=== PATIENT | male | born 1945 | race Caucasian/White ===

== ENCOUNTER → 2021-02-07 14:42 | Outpatient (CLI) | payer MEDICARE, SELFPAY ==
[2021-02-07 19:23] LABS: COVID19 -Nasal RAPID Negative (Negative)
== END ==
PROVIDERS: PCP Family Medicine; Referring Provider Urology; Visit Provider Urology
DX: R30.0 Dysuria (principal); Z20.822 Contact with and (suspected) exposure to COVID-19; N18.9 Chronic kidney disease, unspecified; N28.89 Other specified disorders of kidney and ureter; J44.9 Chronic obstructive pulmonary disease, unspecified; F17.209 Nicotine dependence, unspecified, with unspecified nicotine-induced disorders
CPT/HCPCS: 81002; 87635; 99215

== ENCOUNTER 2021-02-10 06:33 | Day surgery (SDC) | payer MEDICARE, SELFPAY ==
[2021-02-02 12:12] VITALS: BMI 15.5
[2021-02-10] VITALS (9 sets, daily range): BP systolic 175–221; BP diastolic 80–110; PULSE 42–667; RESP 10–20; TEMP 36.3–36.7; O2SAT 97–100; BMI 15.5
[2021-02-10] MEDS: LACTATED RINGERS 1,000 ML 42 ML IV (07:01)
--- NOTE | 2021-02-10 07:41 | SUR.OPER ---
Lithotomy on padded OR bed, head on pillow, arms secured on padded arm boards at <90 degrees abduction. Legs secured in padded yellow fins stirrups.
[2021-02-10] MEDS: ALBUTEROL 2.5 MG/3 ML NEB (ADULT) INH (07:45)
--- NOTE | 2021-02-10 07:48 | PM.PREOP ---
Pre-operative Note COVID-19 COVID-19 status: Negative Result date/Date tested (Pos, Neg/Pending): 02/07/21 Interval Note History & Physical reviewed/Exam performed by Physician: Yes Changes to H&P: No
[2021-02-10] MEDS: CIPROFLOXACIN 400 MG/200 ML PIGGYBACK 200 MG IV (07:56)
[2021-02-10] MEDS: CEFAZOLIN 2 GM/20 ML SYRINGE IV (08:05)
[2021-02-10] MEDS: IOPAMIDOL 15 ML VIAL INJ (08:21)
--- NOTE | 2021-02-10 08:59 | PM.OP.1 ---
Procedure & Clinicians Procedure: Cystoscopy with right retrograde pyelogram, right ureteroscopy with right renal pelvic washing. Same procedure as scheduled: Yes Indications: Is a very pleasant 75-year-old male who is a long-time smoker who was found to have what was reported as a right renal mass on imaging. He presents this time for right ureteroscopy possible biopsy, retrograde pyelogram, cystoscopy. Surgeon: Wilian Li Click Yes if Unassisted: Yes Anesthesia Type: General Operative Notes Findings: Urethral meatus is normal. Urethra is normal along its length with normal mucosa. The prostate shows moderate obstructive character. The ureteral orifices are in normal position with clear efflux. In the floor of the bladder there were few small flecks of calcification. The bladder mucosa is normal without sign of tumor. No other abnormalities are noted within the bladder. At retrograde pyelogram the ureter is somewhat torturous there is some dilation just above the vessels. But it was regular without filling defect. In the renal pelvis in the upper pole the upper pole calices were dilated and had smooth large filling defects. In the uppermost calyx there were 3 in number that appeared to be 1 to 1-1/2 cm in diameter. In the next calyx inferior there was a larger stone that appeared to be approximately 3 +cm and was rather ovoid her egg-shaped. At ureteroscopy these turned out to be calcifications which were rather purplish or liver in color. The larger stone had some crystalline surface material and was surrounded by mucus. A renal pelvic washing was obtained via the ureteral scope directly in this area. No papillary lesions were noted. And again the ureter was normal along its length under direct visualization. Closure Type: not applicable Specimen(s): other (Right renal pelvic washing for cytology.) Prosthetic devices, grafts, tissues, transplants, or devices: None Estimated Blood Loss (mL): 0 Blood products transfused: none Procedure in detail: After informed consent was obtained, the patient was identified and brought to the operating room. The patient was then placed in a supine position on the operative table and anesthesia was induced and maintained. The patient was then transitioned to the lithotomy position, prepped, draped, prepared under sterile fashion for transurethral procedure. Surgical pause was then held. After prepping, draping and ensuring an adequate level of anesthesia attempt was made to pass the cystoscope. The meatus was not accepting of the 22 Nepali scope and therefore Yu sounds were applied in the urethral meatus dilated to 26 Nepali. The cystoscope then easily passed through the urethra prostate and into the bladder. Cystoscopy was performed and findings noted. A cone-tipped catheter was then impacted in the right ureteral orifice and retrograde pyelogram performed collecting serial images via the fluoroscope. With these findings in hand a guidewire was passed up and into the collecting system and the scope was backed out leaving the wire in place as a safety wire. The cystoscope was then reinserted and a 2nd wire passed up and into the collecting system to be used as a working wire. The ureteral scope was then passed over the wire in a coaxial fashion up and into the collecting system. The collecting system was filled with contrast and sequential nephroscopy was then performed. The scope was then placed in the calyx with the largest of the stones and renal pelvic washing was performed using the path find your and a check flow valve on the scope. Again sequential nephroscopy was performed and no other new findings were noted. The scope was then backed out visualizing the ureter along its entire length. The cystoscope was reinserted and the safety wire was removed under direct vision. The bladder was then drained the cystoscope removed, the patient was awakened and taken to the postanesthesia care unit having tolerated the procedure well. The patient will be discharged home to follow up my office in the next 10-14 days. There were no complications Complications: none Post-operative Condition: stable Disposition: PACU Plan for aftercare: Patient to be discharged to home to follow-up in my office in the next 10-14 days.
--- NOTE | 2021-02-10 09:16 | DI.RAD.S_ITS ---
PROCEDURE: XR ABDOMEN 1V INDICATIONS: RETROGRADE TECHNIQUE: 5 fluoroscopic view of the abdomen acquired. COMPARISON: [facility], MR, MR ABDOMEN WITHOUT CONTRAST, 11/02/2020, 10:03. FINDINGS: Right retrograde pyelogram with ureteral cannulation. The right ureter appears to be within normal limits in caliber. The right renal collecting system is dilated. There are filling defects within the upper pole calices. IMPRESSION: Intraoperative guidance provided. Right retrograde pyelogram. Filling defects demonstrated in the upper pole calices. Right hydronephrosis. Dictated by: Chepe Irizarry M.D. on 02/10/2021 at 11:00 Approved by: Chepe Irizarry M.D. on 02/10/2021 at 11:05
--- NOTE | 2021-02-10 10:00 | SUR.PHASEI ---
Notiffied Dr Moraes about pt c/o severe pain last few days that was 10/10 pain and nausea in left lower quadrant surgeon Dr Moraes at bedside and assessed pt .Pt had hx of previous hernia repair in 70's and said pain in same spot has been bulging and painful for a few years but this week daily severe pain and bulging. Dr moraes consulted Dr Troy . Dr Reyes came to bedside and assessed pt and plan to schedule hernia repair in following week. RN will notify Dr Moraes of general surgery plan for surgery next week..
--- NOTE | 2021-02-10 10:04 | SUR.PHASEII ---
Assumed care of pt, stretcher low, locked call wheatley in hand.
--- NOTE | 2021-02-10 10:09 | SUR.PHASEII ---
Diana updated. Awaiting Dr. Li to let him know about Dr. Troy's assessment.
--- NOTE | 2021-02-10 11:38 | SUR.PHASEII ---
Spoke with Dr. Li, informed him of Dr. Troy's assessment of pt. Stated pt ok to go. Appointment made with dr troy's office for pt, aware. Pt up to bathroom, has c/o urgency frequency and bloody urine. Urine initially bloody now clear. Pt left when ready in stable condition.
--- NOTE | 2021-02-10 11:51 | SUR.PHASEI ---
Addendum: fluids encouraged, pt very resistent. When discussing the d/c instructions with she stated that pt is very resistant to drinking and she would try to make sure he does drink extra fluids.
== END 2021-02-10 11:30 | disposition home or self-care (01) ==
PROVIDERS: PCP Family Medicine; Referring Provider Urology; Visit Provider Urology
PROC: (CPT 52005; principal; 2021-02-10 07:45)
DX: N28.89 Other specified disorders of kidney and ureter (principal); F17.210 Nicotine dependence, cigarettes, uncomplicated; J44.9 Chronic obstructive pulmonary disease, unspecified; I10 Essential (primary) hypertension; Z86.73 Personal history of transient ischemic attack (TIA), and cerebral infarction without residual deficits; N40.0 Benign prostatic hyperplasia without lower urinary tract symptoms
CPT/HCPCS: 52005; 74018; 76000; J0690; J0744; J1100; J2405; J2704; J3010; J7613

== ENCOUNTER → 2021-02-11 16:11 | Outpatient (CLI) | payer MEDICARE, SELFPAY | PROVIDERS: PCP Family Medicine; Referring Provider Internal Medicine; Visit Provider Internal Medicine | DX: R30.0 Dysuria (principal) | CPT/HCPCS: 87086 ==

== ENCOUNTER → 2021-02-22 10:49 | Outpatient (CLI) | payer MEDICARE, SELFPAY ==
--- NOTE | 2021-02-22 10:51 | DI.RAD.S_ITS ---
PROCEDURE: XR KUB INDICATIONS: Right renal calculi TECHNIQUE: One view of the abdomen acquired. COMPARISON: [facility], CT, KUB - CT (PNL), 10/13/2013, 9:14. [facility], CR, XR ABDOMEN 1V, 02/10/2021, 9:25. [facility], MR, MR ABDOMEN WITHOUT CONTRAST, 11/02/2020, 10:03. FINDINGS: Surgical changes and devices: None. Bowel: Bowel gas pattern is normal. Soft tissues: No suspicious abdominal calcifications. Visualized solid organ contours appear normal in size. Vascular calcifications indicate atherosclerosis. Bones: No suspicious bony lesions. IMPRESSION: No definitive renal, ureteral or bladder calculi; however much of the renal contours are obscured by overlying bowel gas and stool. Dictated by: Teddy Beth [facility] Interpreted: Chloé Putnam MD on 02/22/2021 at 11:16 Transcribed by: JAE on 02/22/2021 at 11:18 Approved by: Chloé Putnam M.D. on 02/22/2021 at 14:26
== END ==
PROVIDERS: PCP Family Medicine; Referring Provider Urology; Visit Provider Urology
DX: Z87.442 Personal history of urinary calculi (principal); Z20.822 Contact with and (suspected) exposure to COVID-19; Z01.812 Encounter for preprocedural laboratory examination; R30.0 Dysuria; N20.0 Calculus of kidney; K40.90 Unilateral inguinal hernia, without obstruction or gangrene, not specified as recurrent; J44.9 Chronic obstructive pulmonary disease, unspecified; F17.209 Nicotine dependence, unspecified, with unspecified nicotine-induced disorders
CPT/HCPCS: 74018; 81002; 87635; 99214; C9803

== ENCOUNTER → 2021-02-22 10:54 | Outpatient (CLI) | payer MEDICARE, SELFPAY | PROVIDERS: PCP Family Medicine; Referring Provider Urology; Visit Provider Urology | DX: Z87.442 Personal history of urinary calculi (principal) ==

== ENCOUNTER → 2021-02-22 10:57 | Outpatient (CLI) | payer MEDICARE, SELFPAY ==
[2021-02-22 11:50] LABS: COVID19 -Nasal RAPID Negative (Negative)
== END ==
PROVIDERS: PCP Family Medicine; Visit Provider Surgery
DX: Z01.812 Encounter for preprocedural laboratory examination (principal); Z20.822 Contact with and (suspected) exposure to COVID-19
CPT/HCPCS: 87635

== ENCOUNTER 2021-02-23 08:12 | Day surgery (SDC) | payer MEDICARE, SELFPAY ==
[2021-02-22 12:27] VITALS: BMI 16.2
[2021-02-23] VITALS (9 sets, daily range): BP systolic 140–188; BP diastolic 63–80; PULSE 47–89; RESP 12–24; TEMP 36.5–36.8; O2SAT 98–100; BMI 16.2
[2021-02-23] MEDS: LACTATED RINGERS 1,000 ML 42 ML IV (09:24)
--- NOTE | 2021-02-23 10:15 | PM.PREOP ---
Pre-operative Note COVID-19 COVID-19 status: Negative Result date/Date tested (Pos, Neg/Pending): 02/22/21 Criteria for continued procedure: Possibility delay results in more complex future surgery or treatment, Continuing or worsening of significant or severe pain and Non-surgical alternatives not available or appropriate per current SOC Interval Note History & Physical reviewed/Exam performed by Physician: Yes Changes to H&P: No ASA Class (for procedural sedation): III
--- NOTE | 2021-02-23 10:23 | SUR.OPER ---
Supine on padded OR bed, head on pillow, arms secured on padded arm boards at <90 degrees abduction, legs uncrossed, safety belt at thigh, tape over blanket over lower legs.
[2021-02-23] MEDS: CEFAZOLIN 2 GM/20 ML SYRINGE IV (10:40)
[2021-02-23] MEDS: LIDOCAINE 1% W/EPI 20 ML INJ (10:59)
[2021-02-23] MEDS: BUPIVACAINE 0.25% (PF) VIAL 30 ML INJ (11:00)
--- NOTE | 2021-02-23 11:56 | PM.OP.1 ---
Operative Date/Time/Diagnoses Date of procedure: 02/23/21 Time of procedure: 11:56 Pre-op diagnosis: Recurrent left inguinal hernia Post-op diagnosis: same Procedure & Clinicians Procedure: Open recurrent left inguinal hernia repair with mesh Same procedure as scheduled: Yes Indications: Recurrent left inguinal hernia Surgeon: Terrell Troy Click Yes if Unassisted: Yes Anesthesia Type: General Operative Notes Findings: Small indirect recurrent inguinal hernia Estimated Blood Loss (mL): 15 Procedure in detail: Preoperative antibiotic was administered. The patient was brought to the operating room and placed on the table in supine position general anesthesia was induced. The left groin was prepped and draped in the normal fashion and a time-out was performed. Roughly 10 mL of local anesthetic were injected into the skin and subcutaneous adipose tissue over the left groin. A 6 cm incision was made over the left inguinal canal. Dissection was carried down through the subcutaneous adipose tissue. There were old Ethibond sutures in the Duane's fascia which were removed. There were additional Ethibond sutures in the external oblique fascia which were removed and the fascia was opened sharply. Metzenbaum scissors were used to carefully open the aponeurosis in the direction of the fibers taking care not to injure the underlying ilioinguinal nerve which was well seen and protected. We completely exposed the inguinal canal. The cord was dissected free from the inguinal ligament and floor of the inguinal canal and the external oblique aponeurosis was dissected off of the internal oblique taking care not to injure the hypogastric nerve. There was small indirect sac which was dissected off the cord structures and reduced into the abdomen. We then fashioned a piece of polypropylene mesh to fit the inguinal canal floor. The mesh was secured with multiple interrupted 3-0 Prolene sutures to the pubic tubercle and shelving edge of the inguinal ligament as well as to the conjoint tendon medially. We overlapped the tails to recreate an internal ring and secured the medial tail to the inguinal ligament with additional sutures. We injected some more local into the fatty tissue in the inguinal canal and cord. Finally, we closed the external oblique fascia with a running 3-0 Vicryl suture. Skin was closed with interrupted 3-0 Vicryl dermal sutures and a running 4 Monocryl subcuticular stitch. EBL 10 mL The patient was awakened and brought to recovery room. Post-operative Condition: stable Disposition: PACU
--- NOTE | 2021-02-23 11:57 | SUR.OPER ---
mole left forehead dark brown
--- NOTE | 2021-02-23 13:10 | SUR.PHASEII ---
patient assisted to restroom. able to void without difficulty. assisted to dress.
== END 2021-02-23 13:20 | disposition home or self-care (01) ==
PROVIDERS: PCP Family Medicine; Referring Provider Surgery; Visit Provider Surgery
PROC: (CPT 49520; principal; 2021-02-23 10:15)
DX: K40.91 Unilateral inguinal hernia, without obstruction or gangrene, recurrent (principal); Z87.891 Personal history of nicotine dependence; J44.9 Chronic obstructive pulmonary disease, unspecified; R35.0 Frequency of micturition
CPT/HCPCS: 49520; J0690; J2405; J2704; J3010

== ENCOUNTER → 2021-03-18 12:28 | Outpatient (CLI) | payer MEDICARE, SELFPAY ==
--- NOTE | 2021-03-18 12:29 | DI.CT.S_ITS ---
PROCEDURE: CT ABDOMEN PELVIS WO CON INDICATIONS: Right kidney stones TECHNIQUE: Axial sections were acquired from the lung bases to the pubic symphysis. Coronal and sagittal reformats were performed. For radiation dose reduction, the following was used: automated exposure control, adjustment of mA and/or kV according to patient size. COMPARISON: [facility], MR, MR ABDOMEN WITHOUT CONTRAST, 11/02/2020, 10:03. [facility], US, US RENAL COMPLETE, 03/07/2021, 10:41. FINDINGS: Image quality: Excellent. Lung bases: Hyperlucent lung bases. Tiny anterior right lower lobe pleural-based nodule is stable. Heart: No significant findings. URINARY: Right Kidney: Diminutive right kidney measuring 8.1 cm in length. The upper pole collecting system appears distended with obliteration of sinus fat, and contains soft tissue density and several wispy areas of calcification peripherally and centrally, partially filling the upper pole collecting system. Unenhanced appearance of the lower pole is within normal limits. Right Ureter: No definite hydroureter, although the path of the ureter is not well seen due to paucity of intraperitoneal and retroperitoneal fat. Left Kidney: Incompletely ossified calcification involving one of the left lower pole calices. No other intrarenal calcifications. There are few incompletely ossified calcifications involving the left extrarenal pelvis, the largest measuring 1.3 x 1.1 cm, but not apparently obstructing. Left Ureter: Left ureters not seen, but no suspicious hydroureter is indicated. Bladder: Normal wall thickness. No stones. ABDOMEN: Liver: No definite masses. Gallbladder: No suspicious calcifications. Biliary ducts: No obvious biliary dilatation. Pancreas: Not well seen. Spleen: Normal size. Adrenal Glands: There are indistinct low-density masses measuring 4.2 cm on the right and 2.4 cm on the left which have minimally increased in size compared to the prior study and are consistent with lipid rich adenomas. Stomach and Bowel: No suspicious distended fluid-filled bowel loop. Normal quantity of stool present in the colon. Peritoneum: No abnormal intraperitoneal fluid. No free air. Ventral Wall: No hernia. Abdominal Nodes: No enlarged retroperitoneal or mesenteric lymph nodes. Vessels: The abdominal aorta demonstrates dense coronary artery calcification as do its branch arteries. Is tortuous in its course and there is coarse calcification of the common iliac, external, and internal iliac arteries bilaterally. The inferior vena cava is normal in caliber. PELVIS: Pelvic Organs: Normal size prostate gland. Pelvic Nodes: No obvious adenopathy. Miscellaneous: No inguinal hernias are seen. Bones: Rightward mid lumbar scoliosis with severe left-sided disc degeneration. Diffuse osteopenia. No visible fractures. IMPRESSION: 1. Masslike filling defect encompassing much of the right renal upper pole and right upper major calyx is noted and contains several areas of wispy calcification. Calcifying transitional cell carcinoma or ossifying large stone may be present. Calcifying hematoma may be present. Overall this kidney is diminutive compared to the contralateral side. 2. Partially calcified nonobstructing left lower pole intrarenal calculus and collection of calcifications in the expected location of the left extrarenal pelvis do not cause left hydronephrosis. 3. No visible ureteral calcifications. 4. Bilateral lipid rich adrenal adenomas, the larger measures 4.2 cm. Dictated by: Mariangel Rodriguez M.D. on 03/18/2021 at 16:55 Approved by: Mraiangel Rodriguez M.D. on 03/18/2021 at 17:13
== END ==
PROVIDERS: PCP Family Medicine; Referring Provider Urology; Visit Provider Urology
DX: N20.0 Calculus of kidney (principal); N28.9 Disorder of kidney and ureter, unspecified; D35.02 Benign neoplasm of left adrenal gland; D35.01 Benign neoplasm of right adrenal gland
CPT/HCPCS: 74176